=== PATIENT | male | born 1990 | race Caucasian/White ===

== ENCOUNTER 2017-12-30 19:48 | Emergency (ER) | payer OTHER ==
[~2017-12-30] VITALS: Ht 172.7 cm; Wt 56.7 kg
[~2017-12-30 19:48] MED LIST: NO MEDS
[2017-12-30 19:52] VITALS: BP 103/67
== END 2017-12-30 21:32 | disposition home or self-care (01) ==
LOC: ER 19:51
DX: R05 Cough (principal); Z88.0 Allergy status to penicillin; Z88.1 Allergy status to other antibiotic agents
CPT/HCPCS: 71045; 99283; A4606; A6402; Z7610

== ENCOUNTER 2022-10-17 12:31 | Emergency (ER) | payer OTHER ==
[~2022-10-17] VITALS: Ht 172.7 cm; Wt 71.2 kg
[2022-10-17] MEDS ORDERED: IBUPROFEN 600 MG TABLET ONE (13:15)
[2022-10-17] MEDS ORDERED: IBUPROFEN 600 MG TABLET PO ONE (13:30)
--- NOTE | 2022-10-17 13:50 | NUR ---
PO MEDS GIVEN TO PT INDICATED, DORIS WELL.
--- NOTE | 2022-10-17 14:08 | NUR ---
Patient discharged to home in stable condition. Written and verbal after care instructions given. Patient verbalizes understanding of instruction.
[2022-10-17 14:09] VITALS: BP 124/60
== END 2022-10-17 14:09 | disposition home or self-care (01) ==
LOC: ER 12:31
DX: M79.645 Pain in left finger(s) (principal); F17.200 Nicotine dependence, unspecified, uncomplicated; Z88.0 Allergy status to penicillin
CPT/HCPCS: 73130-TC